=== PATIENT | male | born 1955 | race African-American/Black ===

== ENCOUNTER 2021-02-20 16:37 | Inpatient (IN) | payer MEDICARE, MEDICAID ==
[~2021-02-20] VITALS: Ht 96.5 cm; Wt 56.7 kg
[2021-02-20] MEDS ORDERED: ACETAMINOPHEN 325MG TABLET PO STA (17:17)
[2021-02-20] MEDS ORDERED: NITROGLYCERIN 0.4MG TABLET SL SL PRN ×2 (17:30→19:45)
[2021-02-20 17:56] LABS: BASOPHILS % 0.9 % (0.0-2.0); HEMATOCRIT. 39.8 % (42.0-52.0); HEMOGLOBIN. 13.6 g/dL (14.0-18.0); LYMPHOCYTES % 18.9 % (20.0-50.0); MEAN CORPUSCULAR HEMOGLOBIN 31.3 pg (28.0-32.0); MEAN CORPUSCULAR VOLUME 92.1 fL (80.0-94.0); MEAN PLATELET VOLUME 6.8 fl (7.4-10.4); MONOCYTES % 7.6 % (2.0-8.0); NEUTROPHILS % 70.6 % (40.0-76.0); PLATELET 319 x1000/uL (130-400); RED BLOOD CELL COUNT 4.33 mill/uL (4.7-6.1); RED CELL DISTRIBUTION WIDTH 13.4 % (11.6-14.6)
[2021-02-20 18:13] LABS: CHLORIDE 110 mEq/L (98-107)
[2021-02-20] MEDS ORDERED: HYDROCODONE/ACETAMINOPHEN 5/325MG TABLET PO PRN (19:45)
[2021-02-20] MEDS ORDERED: ONDANSETRON HCL 4MG/2ML INJ IV PRN (19:45)
[2021-02-20] MEDS ORDERED: ACETAMINOPHEN 325MG TABLET PO PRN ×2 (19:45)
[2021-02-20] MEDS ORDERED: IPRATROPIUM/ALBUTEROL 0.5-3(2.5)MG/3ML NEB HHN PRN (19:45)
[2021-02-20] MEDS ORDERED: DOCUSATE SODIUM 100MG CAPSULE PO PRN (19:45)
[2021-02-20] MEDS ORDERED: MORPHINE SULFATE 2 MG/ML CPJ (NOT FOR IM USE) IV PRN (19:45)
[2021-02-20] MEDS: ASPIRIN 81MG EC TABLET PO SCH (20:41)
[2021-02-20] MEDS: AMLODIPINE 5MG TABLET PO SCH (20:41)
[2021-02-20 21:00] VITALS: BP 198/68
[2021-02-20] MEDS: CLONIDINE 0.1MG TABLET PO PRN (23:23)
[2021-02-20] MEDS: LORAZEPAM 0.5MG TABLET PO PRN (23:27)
[2021-02-21] VITALS: BP 138/78
[2021-02-21 04:00] VITALS: BP 141/76
[2021-02-21 06:55] LABS: BASOPHILS % 0.9 % (0.0-2.0); EOSINOPHILS % 2.6 % (0.0-5.0); HEMATOCRIT. 39.5 % (42.0-52.0); HEMOGLOBIN. 13.1 g/dL (14.0-18.0); LYMPHOCYTES % 22.1 % (20.0-50.0); MEAN CORPUSCULAR HEMOGLOBIN 30.9 pg (28.0-32.0); MEAN CORPUSCULAR VOLUME 93.5 fL (80.0-94.0); MEAN PLATELET VOLUME 7.2 fl (7.4-10.4); MONOCYTES % 7.9 % (2.0-8.0); NEUTROPHILS % 66.5 % (40.0-76.0); PLATELET 288 x1000/uL (130-400); RED BLOOD CELL COUNT 4.22 mill/uL (4.7-6.1); RED CELL DISTRIBUTION WIDTH 13.7 % (11.6-14.6)
[2021-02-21 07:03] LABS: CHLORIDE 111 mEq/L (98-107)
[2021-02-21 08:00] VITALS: BP 145/69
[2021-02-21] MEDS: ASPIRIN 81MG EC TABLET PO SCH (08:17)
[2021-02-21] MEDS: AMLODIPINE 5MG TABLET PO SCH (08:17)
[2021-02-21] MEDS ORDERED: ASPIRIN 81MG EC TABLET PO SCH (09:00)
[2021-02-21 12:17] VITALS: BP 109/67
[2021-02-21 16:00] VITALS: BP 113/69
[2021-02-21 20:00] VITALS: BP 155/75
[2021-02-21] MEDS: LORAZEPAM 0.5MG TABLET PO PRN (20:59)
[2021-02-21] MEDS: ZOLPIDEM TARTRATE 5MG TABLET PO PRN (23:14)
[2021-02-22] VITALS: BP 146/71
[2021-02-22 04:00] VITALS: BP 156/72
[2021-02-22] MEDS: CLONIDINE 0.1MG TABLET PO PRN (06:36)
[2021-02-22 08:00] VITALS: BP 147/72
[2021-02-22] MEDS: AMLODIPINE 5MG TABLET PO SCH (10:43)
[2021-02-22] MEDS: ASPIRIN 81MG EC TABLET PO SCH (10:43)
[2021-02-22 12:00] VITALS: BP 151/71
[2021-02-22] MEDS: HYDRALAZINE HCL 25MG TABLET PO SCH ×2 (14:56→22:04)
[2021-02-22 16:00] VITALS: BP_SYST 156; BP_SYST 158; BP_DIAS 66; BP_DIAS 94
[2021-02-22 20:00] VITALS: BP 146/70
[2021-02-22] MEDS: ZOLPIDEM TARTRATE 5MG TABLET PO PRN (22:03)
[2021-02-23] VITALS: BP 154/69
[2021-02-23] MEDS: LORAZEPAM 0.5MG TABLET PO PRN ×2 (02:21→23:45)
[2021-02-23 04:00] VITALS: BP 148/72
[2021-02-23 08:00] VITALS: BP 156/77
[2021-02-23 08:54] LABS: BASOPHILS % 1.1 % (0.0-2.0); EOSINOPHILS % 1.4 % (0.0-5.0); HEMATOCRIT. 39.2 % (42.0-52.0); HEMOGLOBIN. 13.3 g/dL (14.0-18.0); LYMPHOCYTES % 16.8 % (20.0-50.0); MEAN CORPUSCULAR HEMOGLOBIN 31.5 pg (28.0-32.0); MEAN CORPUSCULAR VOLUME 92.5 fL (80.0-94.0); MONOCYTES % 5.7 % (2.0-8.0); PLATELET 293 x1000/uL (130-400); RED BLOOD CELL COUNT 4.24 mill/uL (4.7-6.1); RED CELL DISTRIBUTION WIDTH 13.3 % (11.6-14.6)
[2021-02-23 08:57] LABS: CHLORIDE 107 mEq/L (98-107)
[2021-02-23] MEDS: AMLODIPINE 5MG TABLET PO SCH (09:18)
[2021-02-23] MEDS: HYDRALAZINE HCL 25MG TABLET PO SCH (09:18)
[2021-02-23] MEDS: ASPIRIN 81MG EC TABLET PO SCH (09:18)
[2021-02-23 12:00] VITALS: BP 168/74
[2021-02-23] MEDS ORDERED: ASPI-1406 PO (12:10)
[2021-02-23] MEDS ORDERED: HYDR-4134 PO (12:10)
[2021-02-23] MEDS ORDERED: AMLO5TAB88 PO (12:10)
[2021-02-23] MEDS: CLONIDINE 0.1MG TABLET PO PRN (13:52)
[2021-02-23 16:00] VITALS: BP 139/69
[2021-02-23 20:00] VITALS: BP 128/70
[2021-02-23] MEDS: ZOLPIDEM TARTRATE 5MG TABLET PO PRN (21:04)
[2021-02-23] MEDS: HYDRALAZINE HCL 50MG TABLET PO SCH (21:04)
[2021-02-24] VITALS: BP 145/70
[2021-02-24 04:00] VITALS: BP 148/71
[2021-02-24 08:06] VITALS: BP 157/79
[2021-02-24] MEDS: ASPIRIN 81MG EC TABLET PO SCH (08:42)
[2021-02-24] MEDS: HYDRALAZINE HCL 50MG TABLET PO SCH ×2 (08:42→21:06)
[2021-02-24] MEDS: AMLODIPINE 5MG TABLET PO SCH (08:42)
[2021-02-24 11:58] VITALS: BP 140/63
[2021-02-24 16:30] VITALS: BP 146/77
[2021-02-24 20:00] VITALS: BP 138/74
[2021-02-24] MEDS: ZOLPIDEM TARTRATE 5MG TABLET PO PRN (21:06)
[2021-02-24] MEDS: LORAZEPAM 0.5MG TABLET PO PRN (22:51)
[2021-02-25] VITALS: BP 128/77
[2021-02-25 04:00] VITALS: BP 136/75
[2021-02-25 07:56] VITALS: BP 151/72
[2021-02-25] MEDS: HYDRALAZINE HCL 50MG TABLET PO SCH ×2 (08:40→21:06)
[2021-02-25] MEDS: AMLODIPINE 5MG TABLET PO SCH (08:40)
[2021-02-25] MEDS: ASPIRIN 81MG EC TABLET PO SCH (08:40)
[2021-02-25 11:04] VITALS: BP 147/65
[2021-02-25 15:32] VITALS: BP 146/80
[2021-02-25 20:00] VITALS: BP 145/77
[2021-02-25] MEDS: ZOLPIDEM TARTRATE 5MG TABLET PO PRN (21:06)
[2021-02-26] VITALS (7 sets, daily range): BP systolic 128–164; BP diastolic 68–82
[2021-02-26] MEDS: HYDRALAZINE HCL 50MG TABLET PO SCH (09:12)
[2021-02-26] MEDS: ASPIRIN 81MG EC TABLET PO SCH (09:12)
[2021-02-26] MEDS: AMLODIPINE 5MG TABLET PO SCH (09:12)
[2021-02-26] MEDS: CLONIDINE 0.1MG TABLET PO PRN (13:03)
[2021-02-26] MEDS ORDERED: AMLODIPINE 5MG TABLET PO SCH (21:00)
== END 2021-02-26 21:15 | DRG 206 ==
LOC: ER 16:37 → 6WST 18:48 → ENRESERV 20:05
PROVIDERS: ADMIT Internal Medicine; ATTEND Internal Medicine
DX: M94.0 Chondrocostal junction syndrome [Tietze] (principal); E11.51 Type 2 diabetes mellitus with diabetic peripheral angiopathy without gangrene; F17.210 Nicotine dependence, cigarettes, uncomplicated; I10 Essential (primary) hypertension; J44.9 Chronic obstructive pulmonary disease, unspecified; Z20.822 Contact with and (suspected) exposure to COVID-19; Z59.0 Homelessness; Z89.611 Acquired absence of right leg above knee; Z89.612 Acquired absence of left leg above knee; Z89.519 Acquired absence of unspecified leg below knee; I16.0 Hypertensive urgency
CPT/HCPCS: 36415; 71045; 80048; 80053; 82962; 83036; 83880; 84484; 85025; 87426; 93005; 93306; 97162; 99285

== ENCOUNTER 2021-06-29 15:10 | Inpatient (IN) | payer MEDICARE, MEDICAID ==
[~2021-06-29] VITALS: Ht 91.4 cm; Wt 72.6 kg
[~2021-06-29 15:10] MED LIST: AMLO5TAB88 PO; ASPI-1406 PO; HYDR-4134 PO
[2021-06-29] MEDS ORDERED: ACETAMINOPHEN 325MG TABLET PO ONE (22:00)
[2021-06-30] MEDS ORDERED: ACETAMINOPHEN 325MG TABLET PO NR (03:15)
[2021-06-30 12:00] VITALS: BP 162/90
[2021-06-30] MEDS ORDERED: APIX2.5T PO (12:43)
[2021-06-30 12:51] VITALS: BP 162/90
[2021-06-30] MEDS ORDERED: MAGNESIUM/ALUMINUM HYDROXIDE/SIMETHICONE 30ML UDC PO PRN (13:30)
[2021-06-30] MEDS ORDERED: HYDROCODONE/ACETAMINOPHEN 5/325MG TABLET PO PRN (13:30)
[2021-06-30] MEDS ORDERED: ONDANSETRON HCL 4MG/2ML INJ IV PRN (13:30)
[2021-06-30] MEDS ORDERED: IPRATROPIUM/ALBUTEROL 0.5-3(2.5)MG/3ML NEB HHN PRN (13:30)
[2021-06-30] MEDS ORDERED: ENOXAPARIN 40MG/0.4ML SYR SUBCUT SCH (13:30)
[2021-06-30] MEDS ORDERED: NALOXONE HCL 0.4MG/ML VIAL IV PRN (13:45)
[2021-06-30] MEDS: AMLODIPINE 5MG TABLET PO SCH (14:31)
[2021-06-30] MEDS ORDERED: *PATIENT'S OWN MEDICATION STORAGE XX SCH (15:45)
[2021-06-30 16:00] VITALS: BP 195/77
[2021-06-30] MEDS: CLONIDINE 0.1MG TABLET PO PRN (16:51)
[2021-06-30] MEDS ORDERED: HYDRALAZINE HCL 25MG TABLET PO SCH (18:30)
[2021-06-30 20:00] VITALS: BP 134/73
[2021-06-30] MEDS: HYDRALAZINE HCL 25MG TABLET PO SCH (21:00)
[2021-07-01] VITALS: BP 148/76
[2021-07-01 04:00] VITALS: BP 153/91
[2021-07-01] MEDS ORDERED: ACETAMINOPHEN 325MG TABLET PO PRN (06:15)
[2021-07-01 08:00] VITALS: BP 153/73
[2021-07-01] MEDS: HYDRALAZINE HCL 25MG TABLET PO SCH (08:06)
[2021-07-01] MEDS: OMEPRAZOLE 20MG CAPSULE EXTENDED RELEASE PO SCH (08:06)
[2021-07-01] MEDS: ASPIRIN 81MG EC TABLET PO SCH (08:12)
[2021-07-01] MEDS: AMLODIPINE 5MG TABLET PO SCH (08:12)
[2021-07-01 12:00] VITALS: BP 165/76
[2021-07-01] MEDS ORDERED: DEXTROSE 50% WATER 50ML SYRINGE IV PRN ×2 (13:15)
[2021-07-01 16:00] VITALS: BP 145/62
[2021-07-01] MEDS: BLOOD SUGAR DIAGNOSTIC STRIP TEST SCH ×2 (17:22→21:00)
[2021-07-01 20:00] VITALS: BP 150/81
[2021-07-01] MEDS: HYDRALAZINE HCL 50MG TABLET PO SCH (20:19)
[2021-07-02] VITALS (7 sets, daily range): BP systolic 151–181; BP diastolic 72–87
[2021-07-02] MEDS: OMEPRAZOLE 20MG CAPSULE EXTENDED RELEASE PO SCH (06:18)
[2021-07-02] MEDS: BLOOD SUGAR DIAGNOSTIC STRIP TEST SCH ×3 (07:20→17:20)
[2021-07-02] MEDS: AMLODIPINE 5MG TABLET PO SCH (10:30)
[2021-07-02] MEDS: HYDRALAZINE HCL 50MG TABLET PO SCH (10:30)
[2021-07-02] MEDS: ASPIRIN 81MG EC TABLET PO SCH (10:30)
[2021-07-02] MEDS: CLONIDINE 0.1MG TABLET PO PRN (12:49)
[2021-07-02] MEDS ORDERED: AMLODIPINE 5MG TABLET PO NR (13:15)
[2021-07-02] MEDS ORDERED: FAMOTIDINE 20MG TABLET PO SCH (17:20)
[2021-07-03] MEDS ORDERED: AMLODIPINE 10MG TABLET PO SCH (09:00)
== END 2021-07-02 20:50 | DRG 305 ==
LOC: ER 15:10 → MICUSO 23:00 → EDBEDREQTM 23:02 → EDBEDREQ 23:02 → 6EST 06-30 11:52
PROVIDERS: ADMIT Internal Medicine; ATTEND Internal Medicine
DX: I16.1 Hypertensive emergency (principal); I10 Essential (primary) hypertension; E11.9 Type 2 diabetes mellitus without complications; Z20.822 Contact with and (suspected) exposure to COVID-19; Z89.612 Acquired absence of left leg above knee; Z89.611 Acquired absence of right leg above knee; Z91.19 Patient's noncompliance with other medical treatment and regimen; I16.0 Hypertensive urgency
CPT/HCPCS: 82962; 87426; 93005; 99285

== ENCOUNTER 2024-09-01 22:57 | Inpatient (IN) | payer MEDICARE, MEDICAID ==
[~2024-09-01] VITALS: Ht 172.7 cm; Wt 56.2 kg
[2024-09-01] MEDS: PROPOFOL 10MG/ML 100ML 100 ML IV ONE (12:20)
[~2024-09-01 22:57] MED LIST changes: +ACET-2708 PO; +AMLO10TA80 PO; -AMLO5TAB88 PO; +ASCO-339 MT; -ASPI-1406 PO; +CLON-493 PO; +DORZ1DRO7 EACHEYE; +FERR-63 PO; +FURO-151 MT; +GUAI10LI15; -HYDR-4134 PO; +HYDR25TA78; +HYDR50TA40 PO; +INSU100V43 SQ; +IPRA3AMP31 IH; +LATA2.5D14 EACHEYE; +MELA5TAB3 MT; +METH4TAB95 MT; +MULT-1146 MT; +NETA2.5D EACHEYE; +OMEP20CA14 PO; +ONDA4TAB50 MT; +TAMS-11 MT; +TOPUD MT
[2024-09-01 23:07] VITALS: PULSE 107; RESP 22; O2SAT 100
[2024-09-01 23:15] LABS: BG BASE EXCESS -2.1 mmol/L (-2.0-3.0); BG CARBOXYHEMOGLOBIN 1.4 % (0.5-1.5); BG DEOXYHEMOGLOBIN 4.5 % (0.0-5.0); BG HCO3 ACT 26.9 mmol/L (21.0-28.0); BG METHEMOGLOBIN 0.3 % (0.5-1.5); BG OXYGEN SATURATION 95.4 % (94.0-98.0); BG OXYHEMOGLOBIN 93.8 % (94.0-98.0); BG PCO2 72.5 mmHg (35.0-48.0); BG PH 7.187 (7.350-7.450); BG PO2 83.3 mmHg (83.0-108.0); BG SAMPLE SITE RIGHT BRACHIAL; BG TOTAL HEMOGLOBIN 9.5 g/dL (13.5-17.5); BG VENT MODE MASK - NRB
[2024-09-01] MEDS ORDERED: ETOMIDATE 2MG/ML 10ML VIAL IV ONE (23:15)
[2024-09-01 23:32] LABS: CHLORIDE 100 mEq/L (98-107); POTASSIUM 4.2 mEq/L (3.5-5.1); SODIUM 138 mEq/L (136-145)
[2024-09-01 23:33] LABS: CALCIUM 8.9 mg/dL (8.7-10.4); CARBON DIOXIDE 29 mEq/L (21-32)
[2024-09-01 23:38] LABS: CREATININE 2.1 mg/dL (0.6-1.3); GLUCOSE 361 mg/dL (70-105); UREA NITROGEN BLOOD 51 mg/dL (9-23)
[2024-09-01 23:40] LABS: ALANINE AMINOTRANSFERASE 15 IU/L (10-49); ALBUMIN 3.7 g/dL (3.2-4.8); ASPARTATE AMINOTRANSFERASE 14 IU/L (<34); BILIRUBIN TOTAL 0.2 mg/dL (0.1-1.0); CLARITY URINE TURBID (CLEAR); COLOR URINE YELLOW (YELLOW); GLUCOSE URINE NEGATIVE (NEGATIVE); KETONES URINE TRACE (NEGATIVE); LEUKOCYTE ESTERASE URINE 3+ (NEGATIVE); NITRITE URINE NEGATIVE (NEGATIVE); OCCULT BLOOD URINE 2+ (NEGATIVE); PROTEIN TOTAL 6.8 g/dL (6.0-8.3); PROTEIN URINE 2+ (NEGATIVE); SPECIFIC GRAVITY URINE 1.022 (1.005-1.030); UROBILINOGEN URINE 0.2 E.U./dL (0.2-1.0)
[2024-09-01 23:42] LABS: BILIRUBIN DIRECT < 0.1 mg/dL (<=3.0); ETHANOL BLOOD < 10 mg/dL (<10)
[2024-09-01] MEDS: ETOMIDATE 2MG/ML 10ML VIAL IV ONE (23:42)
[2024-09-01 23:43] LABS: TROPONIN I HIGH SENSITIVITY 420 ng/L (3.0-53)
[2024-09-01] MEDS: SUCCINYLCHOLINE CHLORIDE 200MG/10ML IV ONE (23:43)
[2024-09-01 23:54] LABS: *AMPHETAMINES SCREEN URINE NEGATIVE (NEGATIVE); *BARBITURATES SCREEN URINE NEGATIVE (NEGATIVE); *BENZODIAZEPINES SCREEN URINE NEGATIVE (NEGATIVE); *COCAINE SCREEN URINE NEGATIVE (NEGATIVE); CANNABINOID URINE SCREEN NEGATIVE (NEGATIVE); ECSTASY MDMA SCREEN URINE NEGATIVE (NEGATIVE); METHADONE URINE SCREEN NEGATIVE (NEGATIVE); OPIATES URINE SCREEN PRESUMPTIVE POSITIVE (NEGATIVE); PHENCYCLIDINE URINE SCREEN NEGATIVE (NEGATIVE)
[2024-09-02] VITALS (80 sets, daily range): BP systolic 88–142; BP diastolic 57–85; PULSE 72–101; RESP 6–32; TEMP 36.8–37.5; O2SAT 91–100
[2024-09-02 00:02] LABS: PROTHROMBIN TIME 11.1 sec (9.6-11.0)
[2024-09-02] MEDS: ACETAMINOPHEN 1000MG/100ML 100 ML IV ONE (00:42)
[2024-09-02 00:44] LABS: INFLUENZA TYPE A Presumptive Negative (Pres. Neg.); INFLUENZA TYPE B Presumptive Negative (Pres. Neg.)
[2024-09-02] MEDS: VANCOMYCIN 1G PREMIX 200 ML IV SCH (01:30)
[2024-09-02] MEDS: SODIUM CHLORIDE 0.9% 100 ML IV ONE (01:30)
[2024-09-02 02:08] LABS: HEMATOCRIT. 28.4 % (42.0-52.0); HEMOGLOBIN. 8.6 g/dL (14.0-18.0); MEAN CORPUSCULAR HEMOGLOBIN 28.9 pg (28.0-32.0); MEAN CORPUSCULAR HGB CONC 30.4 g/dL (31.0-37.0); MEAN CORPUSCULAR VOLUME 95.3 fL (80.0-94.0); MEAN PLATELET VOLUME 8.4 fl (7.4-10.4); PLATELET 299 x1000/uL (130-400); RED BLOOD CELL COUNT 2.98 mill/uL (4.7-6.1); RED CELL DISTRIBUTION WIDTH 15.7 % (11.6-14.6)
[2024-09-02 02:15] LABS: DIFFERENTIAL COMMENT 1
[2024-09-02] MEDS ORDERED: PROPOFOL 10MG/ML 100ML 100 ML IV PRN (02:40)
[2024-09-02 03:24] LABS: WBC URINE 15-25 /hpf (0-2)
[2024-09-02 03:25] LABS: BACTERIA URINE 1+; SQUAMOUS EPITHELIAL CELL URINE RARE /lpf (RARE/1+)
[2024-09-02 05:08] LABS: PLATELET ESTIMATE NORMAL
[2024-09-02 05:22] LABS: BG BASE EXCESS 2.5 mmol/L (-2.0-3.0); BG CARBOXYHEMOGLOBIN 1.5 % (0.5-1.5); BG DEOXYHEMOGLOBIN 0.3 % (0.0-5.0); BG FRACTION INSPIRED OXYGEN 70; BG HCO3 ACT 25.6 mmol/L (21.0-28.0); BG METHEMOGLOBIN 0.3 % (0.5-1.5); BG OXYGEN SATURATION 99.7 % (94.0-98.0); BG OXYHEMOGLOBIN 97.9 % (94.0-98.0); BG PCO2 33.2 mmHg (35.0-48.0); BG PH 7.505 (7.350-7.450); BG PO2 219.7 mmHg (83.0-108.0); BG SAMPLE SITE RIGHT BRACHIAL; BG VENT MODE VENT - AC
[2024-09-02] MEDS ORDERED: DEXTROSE 50% WATER 50ML SYRINGE IV PRN (06:15)
[2024-09-02] MEDS: SODIUM CHLORIDE 0.9% 1,000 ML IV SCH (06:22)
[2024-09-02] MEDS: PIPERACILLIN/TAZO 3.375G/50ML 50 ML IV SCH (06:24)
[2024-09-02] MEDS: BLOOD SUGAR DIAGNOSTIC STRIP TEST SCH (06:30)
[2024-09-02] MEDS: INSULIN LISPRO 100 UNITS/ML SUBCUT SCH (06:37)
[2024-09-02] MEDS ORDERED: INSULIN LISPRO 100 UNITS/ML SUBCUT SCH (07:00)
[2024-09-02] MEDS: PANTOPRAZOLE SODIUM 40 MG/VIAL IV SCH (08:35)
[2024-09-02] MEDS: ENOXAPARIN 30MG/0.3ML SYR SUBCUT SCH (08:35)
[2024-09-02] MEDS ORDERED: VANCOMYCIN 500MG PREMIX 100 ML IV NR (09:00)
[2024-09-02] MEDS: AZITHROMYCIN 500 MG TABLET GT SCH (09:52)
[2024-09-02 11:40] LABS: HEPATITIS B SURFACE ANTIGEN NEGATIVE (Negative)
[2024-09-02] MEDS: FUROSEMIDE 40MG/4ML VIAL IVP SCH (11:54)
[2024-09-02] MEDS: METHYLPREDNISOLONE SOD SUCC 40MG/ML (ACT-O-VIAL) IV SCH (11:54)
[2024-09-02] MEDS: IPRATROPIUM/ALBUTEROL 0.5-3(2.5)MG/3ML NEB HHN SCH (12:00)
[2024-09-02 12:01] LABS: HEPATITIS C AB NON REACTIVE (Neg) (Negative)
[2024-09-02] MEDS: PIPERACILLIN/TAZO 3.375G/50ML IV SCH (14:33)
[2024-09-02] MEDS: VANCOMYCIN 750MG/150ML (BAXTER) IV SCH (21:12)
[2024-09-03] VITALS (64 sets, daily range): BP systolic 83–140; BP diastolic 31–121; PULSE 84–103; RESP 9–36; TEMP 35–36.8; O2SAT 86–100
[2024-09-03 00:54] LABS: BG BASE EXCESS -1.1 mmol/L (-2.0-3.0); BG CARBOXYHEMOGLOBIN 0.8 % (0.5-1.5); BG DEOXYHEMOGLOBIN 6.6 % (0.0-5.0); BG FRACTION INSPIRED OXYGEN 32; BG HCO3 ACT 25.6 mmol/L (21.0-28.0); BG METHEMOGLOBIN 0.1 % (0.5-1.5); BG OXYGEN SATURATION 93.3 % (94.0-98.0); BG OXYHEMOGLOBIN 92.5 % (94.0-98.0); BG PCO2 52.8 mmHg (35.0-48.0); BG PH 7.303 (7.350-7.450); BG PO2 67.9 mmHg (83.0-108.0); BG SAMPLE SITE RIGHT RADIAL; BG TOTAL HEMOGLOBIN 9.4 g/dL (13.5-17.5); BG VENT MODE NASAL CANNULA
[2024-09-03 05:10] LABS: HEMATOCRIT. 26.7 % (42.0-52.0); HEMOGLOBIN. 8.4 g/dL (14.0-18.0); MEAN CORPUSCULAR HEMOGLOBIN 29.2 pg (28.0-32.0); MEAN CORPUSCULAR HGB CONC 31.5 g/dL (31.0-37.0); MEAN CORPUSCULAR VOLUME 92.8 fL (80.0-94.0); MEAN PLATELET VOLUME 8.9 fl (7.4-10.4); PLATELET 246 x1000/uL (130-400); RED BLOOD CELL COUNT 2.88 mill/uL (4.7-6.1); RED CELL DISTRIBUTION WIDTH 15.4 % (11.6-14.6); WHITE BLOOD COUNT 20.7 x1000/uL (4.5-11.0)
[2024-09-03 05:29] LABS: CREATININE 1.9 mg/dL (0.6-1.3)
[2024-09-03 05:57] LABS: DIFFERENTIAL COMMENT 1
[2024-09-03 09:01] LABS: BG BASE EXCESS -0.6 mmol/L (-2.0-3.0); BG CARBOXYHEMOGLOBIN 1.6 % (0.5-1.5); BG DEOXYHEMOGLOBIN 5.5 % (0.0-5.0); BG FRACTION INSPIRED OXYGEN 36; BG METHEMOGLOBIN 0.3 % (0.5-1.5); BG OXYGEN SATURATION 94.4 % (94.0-98.0); BG OXYHEMOGLOBIN 92.6 % (94.0-98.0); BG PCO2 45.9 mmHg (35.0-48.0); BG PH 7.354 (7.350-7.450); BG SAMPLE SITE RIGHT RADIAL; BG TOTAL HEMOGLOBIN 8.1 g/dL (13.5-17.5); BG VENT MODE NASAL CANNULA
[2024-09-03] MEDS: TAMSULOSIN HCL 0.4MG SR CAPSULE PO SCH (10:11)
[2024-09-03 11:02] LABS: ANISOCYTOSIS 1+; PLATELET ESTIMATE NORMAL
[2024-09-03 11:23] LABS: PROTEIN TOTAL 6.8 g/dL (6.0-8.3)
[2024-09-03 13:57] LABS: BODY FLUID MONOCYTES 14 %; BODY FLUID RBC 163 /cu mm (0-2000); BODY FLUID WBC 165 /cu mm (0-200)
[2024-09-03 14:09] LABS: PROTEIN BODY FLUID < 2.0 gm/dL
[2024-09-03 18:43] LABS: BG BASE EXCESS 0.2 mmol/L (-2.0-3.0); BG CARBOXYHEMOGLOBIN 0.6 % (0.5-1.5); BG DEOXYHEMOGLOBIN 8.2 % (0.0-5.0); BG FRACTION INSPIRED OXYGEN 40; BG HCO3 ACT 24.8 mmol/L (21.0-28.0); BG METHEMOGLOBIN 0.3 % (0.5-1.5); BG OXYGEN SATURATION 91.7 % (94.0-98.0); BG OXYHEMOGLOBIN 90.9 % (94.0-98.0); BG PCO2 40.1 mmHg (35.0-48.0); BG PH 7.409 (7.350-7.450); BG PO2 60.5 mmHg (83.0-108.0); BG SAMPLE SITE RIGHT RADIAL; BG TOTAL HEMOGLOBIN 9.3 g/dL (13.5-17.5); BG VENT MODE NASAL CANNULA
[2024-09-03] MEDS: LATANOPROST 0.005% OPHTH DROPS 2.5ML BOTHEYE SCH (21:00)
[2024-09-04] VITALS (10 sets, daily range): BP systolic 114–143; BP diastolic 65–87; PULSE 89–100; RESP 18–20; TEMP 36.1–37.7; O2SAT 93–98
[2024-09-04] MEDS: INSULIN GLARGINE 100 UNITS/ML SUBCUT SCH (02:01)
[2024-09-04] MEDS: ACETAMINOPHEN 325MG TABLET PO PRN (04:21)
[2024-09-04 06:48] LABS: POTASSIUM 3.3 mEq/L (3.5-5.1)
[2024-09-04 06:49] LABS: CALCIUM 8.8 mg/dL (8.7-10.4)
[2024-09-04 06:54] LABS: CREATININE 1.8 mg/dL (0.6-1.3)
[2024-09-04 07:00] LABS: HEMATOCRIT. 24.6 % (42.0-52.0); MEAN CORPUSCULAR HEMOGLOBIN 29.5 pg (28.0-32.0); MEAN CORPUSCULAR HGB CONC 32.6 g/dL (31.0-37.0); MEAN CORPUSCULAR VOLUME 90.4 fL (80.0-94.0); MEAN PLATELET VOLUME 9.6 fl (7.4-10.4); PLATELET 230 x1000/uL (130-400); RED BLOOD CELL COUNT 2.72 mill/uL (4.7-6.1); RED CELL DISTRIBUTION WIDTH 15.3 % (11.6-14.6); WHITE BLOOD COUNT 10.3 x1000/uL (4.5-11.0)
[2024-09-04 07:51] LABS: DIFFERENTIAL COMMENT 1
[2024-09-04] MEDS: POTASSIUM CHLORIDE 20MEQ TABLET SR PO NR (09:03)
[2024-09-04] MEDS: INSULIN GLARGINE 100 UNITS/ML SUBCUT NR (09:07)
[2024-09-05] VITALS (10 sets, daily range): BP systolic 118–134; BP diastolic 63–77; PULSE 79–102; RESP 16–20; TEMP 36.2–37.2; O2SAT 94–98
[2024-09-05] MEDS: INSULIN GLARGINE 100 UNITS/ML SUBCUT SCH (00:07)
[2024-09-05] MEDS ORDERED: SODIUM BICARBONATE 4% 2.4MEQ/5ML VIAL IV ONE (08:14)
[2024-09-05 13:51] LABS: PLATELET ESTIMATE NORMAL
[2024-09-06] VITALS: BP 118/76; PULSE 98; RESP 18; TEMP 36.4; O2SAT 96
[2024-09-06] MEDS: MELATONIN 3MG TABLET PO SCH (02:02)
[2024-09-06 04:00] VITALS: BP 123/77; PULSE 86; RESP 18; TEMP 36.6; O2SAT 98
[2024-09-06] MEDS: PREDNISONE 20MG TABLET PO SCH (09:00)
[2024-09-06 12:00] VITALS: BP 139/24; PULSE 83; RESP 19; TEMP 36.4; O2SAT 94
[2024-09-06] MEDS ORDERED: DOXY100T2 MT (15:30)
[2024-09-06 16:00] VITALS: BP 122/73; PULSE 94; RESP 18; TEMP 36.4; O2SAT 94
[2024-09-06 20:38] VITALS: PULSE 88; RESP 16; O2SAT 97
[2024-09-07] VITALS (7 sets, daily range): BP systolic 129–142; BP diastolic 66–89; PULSE 76–111; RESP 17–20; TEMP 36.2–37.1; O2SAT 95–98
[2024-09-07 10:11] LABS: HEMATOCRIT. 25.5 % (42.0-52.0); MEAN CORPUSCULAR HGB CONC 31.3 g/dL (31.0-37.0); MEAN CORPUSCULAR VOLUME 89.5 fL (80.0-94.0); MEAN PLATELET VOLUME 9.2 fl (7.4-10.4); PLATELET 233 x1000/uL (130-400); RED BLOOD CELL COUNT 2.85 mill/uL (4.7-6.1); RED CELL DISTRIBUTION WIDTH 15.4 % (11.6-14.6); WHITE BLOOD COUNT 14.3 x1000/uL (4.5-11.0)
[2024-09-07 10:19] LABS: DIFFERENTIAL COMMENT 1
[2024-09-07 10:21] LABS: CALCIUM 9.4 mg/dL (8.7-10.4); POTASSIUM 4.4 mEq/L (3.5-5.1)
[2024-09-07 10:27] LABS: CREATININE 1.6 mg/dL (0.6-1.3)
[2024-09-08 16:51] LABS: ANISOCYTOSIS 1+; PLATELET ESTIMATE NORMAL
== END 2024-09-07 17:20 | DRG 871 ==
LOC: ER 22:57 → MICUSO 09-02 00:47 → EDBEDREQDT 09-02 01:11 → EDBEDREQ 09-02 01:11 → EDBEDREQTM 09-02 01:11 → EDBEDREQSVC 09-02 01:11 → 7WST 09-03 23:55
PROVIDERS: ADMIT Internal Medicine; ATTEND Internal Medicine
PROC: 0BH17EZ Insertion of Endotracheal Airway into Trachea, Via Natural or Artificial Opening (ICD-10-PCS; 2024-09-02)
PROC: 5A1935Z Respiratory Ventilation, Less than 24 Consecutive Hours (ICD-10-PCS; 2024-09-02)
PROC: 0W9B3ZZ Drainage of Left Pleural Cavity, Percutaneous Approach (ICD-10-PCS; principal; 2024-09-03)
PROC: 0W993ZZ Drainage of Right Pleural Cavity, Percutaneous Approach (ICD-10-PCS; 2024-09-05)
DX: A41.89 Other specified sepsis (principal); I21.A1 Myocardial infarction type 2; J18.9 Pneumonia, unspecified organism; R65.21 Severe sepsis with septic shock; J96.02 Acute respiratory failure with hypercapnia; J96.01 Acute respiratory failure with hypoxia; N17.9 Acute kidney failure, unspecified; J44.1 Chronic obstructive pulmonary disease with (acute) exacerbation; J44.0 Chronic obstructive pulmonary disease with (acute) lower respiratory infection; N39.0 Urinary tract infection, site not specified; I13.0 Hypertensive heart and chronic kidney disease with heart failure and stage 1 through stage 4 chronic kidney disease, or unspecified chronic kidney disease; G93.49 Other encephalopathy; Z20.822 Contact with and (suspected) exposure to COVID-19; E11.22 Type 2 diabetes mellitus with diabetic chronic kidney disease; N18.9 Chronic kidney disease, unspecified; D64.9 Anemia, unspecified; I50.9 Heart failure, unspecified; E11.51 Type 2 diabetes mellitus with diabetic peripheral angiopathy without gangrene; I25.10 Atherosclerotic heart disease of native coronary artery without angina pectoris; K21.9 Gastro-esophageal reflux disease without esophagitis; Z99.81 Dependence on supplemental oxygen; Z89.611 Acquired absence of right leg above knee; Z89.612 Acquired absence of left leg above knee
CPT/HCPCS: 32555; 36415; 36600; 71045; 76604; 80048; 80076; 80202; 80305; 80320; 81003; 82375; 82805; 82962; 83036; 83605; 83615; 83880; 84145; 84155; 84484; 85025; 86705; 87070; 87340; 87426; 87804; 88108; 88312; 93005; 94003; 94070; 94640; 94664; 94760; 98960; 99291; A4606; J0330; J1650; J1815; J1940; J2470; J2543; J2704; J2920; J3370; J3490; J7050; J7512; G0480; J0131